=== PATIENT | female | born 2000 | race African-American/Black ===

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

== ENCOUNTER 2018-05-18 18:05 | Emergency (ER) | payer OTHER ==
[~2018-05-18] VITALS: Ht 170.2 cm; Wt 97.1 kg
[~2018-05-18 18:05] MED LIST: NITR100C62 PO
[2018-05-18 18:56] VITALS: BP 164/113
[2018-05-18] MEDS ORDERED: LIDO:MAALOX 1:1 20 ML SINGLE DOSE. PO ONE (19:00)
--- NOTE | 2018-05-18 19:02 | PHYS DOC ---
Past Medical History Past Medical History: Other Additional Past Medical Histor: ovarian cyst Past Surgical History: Other Additional Past Surgical Histo: ovarian cyst Additional Information: nonsmoker Alcohol Use: None Drug Use: None Adult General Chief Complaint Chief Complaint: ABDOMINAL PAIN HPI HPI Patient is a 17-year-old female is presenting with 4 days of bilateral epigastric pain. She reports this pain is sharp, it radiates up to her chest, it is worse after meals, and it goes away with rest. Patient has a past medical history of polycystic ovarian syndrome that she is supposed to take metformin for, she is noncompliant. Patient denies trauma. She reports that she has not had a period in 4 months, she says that there is no chance she is . She reports that she has not taken any medication for the pain. She reports that she has had episodes of GERD before and the pain feels very similar. She denies fever, chills, diarrhea, constipation, nausea, and vomiting. Review of Systems Review of Systems Constitutional: Denies fever or chills [] Eyes: Denies change in visual acuity, redness, or eye pain [] HENT: Denies nasal congestion or sore throat [] Respiratory: Denies cough or shortness of breath [] Cardiovascular: Reports chest pain, denies palpitations [] GI: Reports abdominal pain, denies nausea, vomiting, or diarrhea [] : Denies dysuria or hematuria [] Musculoskeletal: Denies back pain or joint pain [] Integument: Denies rash or skin lesions [] Neurologic: Denies headache, focal weakness or sensory changes [] Complete systems were reviewed and found to be within normal limits, except as documented in this note. Current Medications Current Medications Current Medications Medications (Trade) Dose Ordered Sig/Edwige Start Time Stop Time Status Last Admin Dose Admin Famotidine (Pepcid) 20 mg 1X ONCE 05/18/18 20:00 05/18/18 20:01 DC 05/18/18 20:01 20 MG Multi-Ingredient Mouthwash/Gargle (Gi Cocktail) 20 ml 1X ONCE 05/18/18 19:00 05/18/18 19:01 DC 05/18/18 19:00 20 ML Allergies Allergies Allergies Coded Allergies Type Severity Reaction Last Updated Verified No Known Drug Allergies 07/09/17 No Physical Exam Physical Exam Constitutional: Well developed, well nourished, no acute distress, non-toxic appearance. [] HENT: Normocephalic, atraumatic, nose normal. [] Eyes: Conjunctiva normal, no discharge. [] Neck: Normal range of motion, no tenderness. [] Cardiovascular: Heart rate regular rhythm, no murmur [] Lungs & Thorax: Bilateral breath sounds clear to auscultation [] Abdomen: Bowel sounds normal, soft, mild tenderness to palpation to epigastrium , non-peritoneal, negative Viveros's sign[] Skin: Warm, dry, no erythema, no rash. [] Extremities: No tenderness, no cyanosis, no clubbing, ROM intact, no edema. [] Neurologic: Alert and oriented X 3, no focal deficits noted. [] Psychologic: Affect normal, judgement normal, mood normal. [] Current Patient Data Vital Signs Vital Signs Date Time Temp Pulse Resp B/P (MAP) Pulse Ox O2 Delivery O2 Flow Rate FiO2 05/18/18 18:56 98.7 101 16 164/113 (130) 99 Room Air 98.7 Lab Values Laboratory Tests Test 05/18/18 18:36 05/18/18 18:57 Urine Collection Type Unknown Urine Color Yellow Urine Clarity Cloudy Urine pH 7.0 Urine Specific [place] 1.025 Urine Protein Negative mg/dL (NEG-TRACE) Urine Glucose (UA) Negative mg/dL (NEG) Urine Ketones (Stick) Negative mg/dL (NEG) Urine Blood Negative (NEG) Urine Nitrite Negative (NEG) Urine Bilirubin Negative (NEG) Urine Urobilinogen Dipstick 1.0 mg/dL (0.2 mg/dL) Urine Leukocyte Esterase Negative (NEG) Urine RBC 0 /HPF (0-2) Urine WBC 0 /HPF (0-4) Urine Squamous Epithelial Cells Few /LPF Urine Amorphous Sediment Present /HPF Urine Bacteria Moderate /HPF (0-FEW) Urine Mucus Mod /LPF POC Urine HCG, Qualitative Hcg negative (Negative) EKG EKG [] Radiology/Procedures Radiology/Procedures [] Course & Med Decision Making Course & Med Decision Making Patient is 17-year-old female is presenting with 4 days of bilateral upper abdominal pain, worse to epigastrium. Negative Viveros's sign. History of present illness and physical exam were concerning for GERD. Patient received GI cocktail, some improvement but the pain returned after a while. Patient offered further laboratory evaluation but opted to receive oral Pepcid and follow up with GI as outpatient. Patient stable for discharge with outpatient follow-up with PCP/GI. Discussed findings and plan with patient and family, who acknowledge understanding and agreement. Pradip Disclaimer Dragon Disclaimer This electronic medical record was generated, in whole or in part, using a voice recognition dictation system. Departure Departure Impression: Primary Impression: Epigastric abdominal pain Disposition: HOME, SELF-CARE Condition: STABLE Referrals: NO PCP (PCP) JIM SPAULDING MD Patient Instructions: Gastritis, Adult, [id number] Scripts Famotidine (PEPCID) 20 Mg Tablet 20 MG PO BID, #20 TAB Prov: PHOENIX MUÑOZ DO 05/18/18 PHOENIX MUÑOZ DO May 18, 2018 19:02
[2018-05-18 19:03] LABS: BILIRUBIN,URINE NEGATIVE (NEG); CLARITY,URINE CLOUDY; COLOR,URINE YELLOW; NITRITE,URINE NEGATIVE (NEG); PROTEIN,URINE NEGATIVE (NEG-TRACE)
[2018-05-18 19:09] LABS: AMORPHOUS SEDIMENT,UR PRESENT /HPF; BACTERIA,URINE MODERATE /HPF (0-FEW); RBC,URINE 0 /HPF (0-2); SQUAMOUS EPITHELIAL CELL,UR FEW /LPF; WBC,URINE 0 /HPF (0-4)
[2018-05-18] MEDS ORDERED: FAMO-63 PO (19:16)
[2018-05-18] MEDS ORDERED: FAMOTIDINE 20 MG TABLET. PO ONE (20:00)
== END 2018-05-18 20:09 | disposition home or self-care (01) ==
LOC: ER 18:05
DX: R10.13 Epigastric pain (principal); K21.9 Gastro-esophageal reflux disease without esophagitis
CPT/HCPCS: 81001; 81025; 87086; 99283

== ENCOUNTER 2020-10-03 00:57 | Emergency (ER) | payer OTHER ==
[~2020-10-03] VITALS: Ht 170.2 cm; Wt 113.6 kg
[~2020-10-03 00:57] MED LIST changes: +FAMO-63 PO
[2020-10-03 01:10] VITALS: BP 160/77
[2020-10-03] MEDS ORDERED: MAGN296S68 PO (01:32)
[2020-10-03] MEDS ORDERED: GLYC1SUP RC (01:32)
--- NOTE | 2020-10-03 01:36 | PHYS DOC ---
Past Medical History Past Medical History: Other Additional Past Medical Histor: ovarian cyst Past Surgical History: Other Additional Past Surgical Histo: ovarian cyst Smoking Status: Never Smoker Alcohol Use: None Drug Use: None General Adult EDM: Chief Complaint: CONSTIPATION HPI: HPI: Patient is a 19 year old male presents with a chief complaint of constipation and rectal pain. Patient states she has not had a bowel movement in approximately 1 week. Patient states she has had rectal discomfort for the same amount of time. Patient states she has the same exact rectal pain once a month on the first day of her period. Patient states she started her period 1 week ago but the rectal pain continued. Patient states she did have a bowel movement 1 week ago and there was more consistent stool with some abnormal white discoloration. Patient denied any rectal bleeding. Patient states she has a ttempted to have a BM and has strained. She has been taking [id number] ibuprofen which completely resolves her her rectal pain. On exam patient's abdomen is soft without rebound or guarding. Review of Systems: Review of Systems: Review of systems: Constitutional symptoms- No fever, no chills. Eyes- No Discharge, No Visual Loss Respiratory symptoms- No shortness of breath, No wheezing, No Dyspnea on Exertion Cardiovascular Systems; No chest pain, No Palpitations, No syncope Gastrointestinal symptoms: NO abdominal pain, no nausea, no vomiting or diarrhea. Positive rectal pain positive constipation Genitourinary symptoms: No dysuria. Musculoskeletal symptoms: No back pain No extremity pain. NEUROLOGICAL Symptoms: No headache, no generalized weakness; No focal Weakness Heart Score: C/O Chest Pain: N/A Risk Factors: Risk Factors: DM, Current or recent (<one month) smoker, HTN, HLP, family history of CAD, obesity. Risk Scores: Score 0 - 3: 2.5% MACE over next 6 weeks - Discharge Home Score 4 - 6: 20.3% MACE over next 6 weeks - Admit for Clinical Observation Score 7 - 10: 72.7% MACE over next 6 weeks - Early Invasive Strategies Allergies: Allergies: Allergies Coded Allergies Type Severity Reaction Last Updated Verified No Known Drug Allergies 07/09/17 No Physical Exam: PE: General: alert, no acute distress. Skin: warm, dry and intact. Head:: Normocephalic, atraumatic. Neck: Trachea midline. Eyes: EOMI, Normal conjunctiva, No drainage CARDIOVASCULAR: Regular rate and rhythm RESPIRATORY: No respiratory distress Back: Full range of motion. MUSCULOSKELETAL: Full range of motion of bilateral upper and lower extremities. GASTROINTESTINAL: Abdomen soft without rebound or guarding., Rectal exam deferred NEUROLOGICAL: Alert and noted to person, place and time. No neurological deficits observed Psychiatric: Cooperative. Normal judgment EKG: EKG: [] Radiology/Procedures: Radiology/Procedures: [] Course & Med Decision Making: Course & Med Decision Making Pertinent Labs and Imaging studies reviewed. (See chart for details) [] Dragon Disclaimer: Dragon Disclaimer: This electronic medical record was generated, in whole or in part, using a voice recognition dictation system. Departure Departure Impression: Primary Impression: Constipation Additional Impression: Rectal pain Disposition: HOME / SELF CARE / HOMELESS Condition: STABLE Referrals: NO PCP (PCP) Patient Instructions: Abdominal Pain, Constipation, Adult Scripts Glycerin (ADULT GLYCERIN) 1 Each Supp.rect 1 EACH RC DAILY, #10 SUPP.RECT Prov: RENATO LEGER DO 10/03/20 Magnesium Citrate (MAGNESIUM CITRATE) 296 Ml Solution 296 ML PO ONCE, #296 ML Prov: RENATO LEGER DO 10/03/20 RENATO LEGER DO Oct 03, 2020 01:36
== END 2020-10-03 02:11 | disposition home or self-care (01) ==
LOC: ER 00:57
DX: K59.00 Constipation, unspecified (principal); K62.89 Other specified diseases of anus and rectum
CPT/HCPCS: 99282

== ENCOUNTER 2020-12-14 00:49 | Emergency (ER) | payer OTHER ==
[~2020-12-14] VITALS: Ht 172.7 cm; Wt 113.6 kg
[~2020-12-14 00:49] MED LIST changes: +GLYC1SUP RC; +MAGN296S68 PO
[2020-12-14 01:50] LABS: CLARITY,URINE CLEAR; COLOR,URINE ORANGE
[2020-12-14 02:04] LABS: AMORPHOUS SEDIMENT,UR PRESENT /HPF; BACTERIA,URINE FEW /HPF (0-FEW); YEAST,URINE PRESENT /HPF
[2020-12-14] MEDS ORDERED: SULF1TAB24 PO (03:03)
[2020-12-14] MEDS ORDERED: FLUC150T PO (03:03)
--- NOTE | 2020-12-14 03:05 | PHYS DOC ---
Past Medical History Past Medical History: Other Additional Past Medical Histor: ovarian cyst, PCOS, HERNIA Past Surgical History: Other Additional Past Surgical Histo: ovarian cyst, ABDOMINAL RECONSTRUCTION SECONDARY TO HERNIA Smoking Status: Never Smoker Alcohol Use: Rarely Drug Use: None General Adult EDM: Chief Complaint: VAGINAL PROBLEM HPI: HPI: Patient is a 19 year old female who presents with labial pain and dysuria. Has felt like her labia has been slightly swollen for the past week. This started after intercourse when she had used a condom. She does not consistently use condoms. Has been sexually active with at least 2 partners in the past several months. Reports up to 20 partners in her lifetime. She denies any green or yellow vaginal discharge, but has had chunkier discharge than usual. Denies fever/chills. Dysuria started yesterday. She started taking Pyridium. She has been checked for STDs in the past and has been negative for GC and chlamydia. Review of Systems: Review of Systems: Constitutional: Denies fever or chills. [] Eyes: Denies change in visual acuity. [] HENT: Denies nasal congestion or sore throat. [] Respiratory: Denies cough or shortness of breath. [] Cardiovascular: Denies chest pain or edema. [] GI: Denies abdominal pain, nausea, vomiting, bloody stools or diarrhea. [] : Reports dysuria. Reports chunky vaginal discharge, reports vaginal discomfort. [] Musculoskeletal: Denies back pain or joint pain. [] Integument: Denies rash. [] Neurologic: Denies headache, focal weakness or sensory changes. [] Endocrine: Denies polyuria or polydipsia. [] Lymphatic: Denies swollen glands. [] Psychiatric: Denies depression or anxiety. [] Heart Score: C/O Chest Pain: No Risk Factors: Risk Factors: DM, Current or recent (<one month) smoker, HTN, HLP, family history of CAD, obesity. Risk Scores: Score 0 - 3: 2.5% MACE over next 6 weeks - Discharge Home Score 4 - 6: 20.3% MACE over next 6 weeks - Admit for Clinical Observation Score 7 - 10: 72.7% MACE over next 6 weeks - Early Invasive Strategies Allergies: Allergies: Allergies Coded Allergies Type Severity Reaction Last Updated Verified No Known Drug Allergies 07/09/17 No Physical Exam: PE: Constitutional: Well developed, well nourished, no acute distress, non-toxic appearance. [] HENT: Normocephalic, atraumatic, bilateral external ears normal, oropharynx moist, no oral exudates, nose normal. [] Eyes: PERRLA, EOMI, conjunctiva normal, no discharge. [] Neck: Normal range of motion, no tenderness, supple, no stridor. [] Cardiovascular:Heart rate regular rhythm, no murmur [] Lungs & Thorax: Bilateral breath sounds clear to auscultation [] Abdomen: Bowel sounds normal, soft, no tenderness, no masses, no pulsatile masses. [] : Pelvic exam with no evidence of labial edema or Bartholin abscess/cyst. On the left labia minora she did have a small ulceration. Speculum exam with chunky white vaginal secretions. Skin: Warm, dry, no erythema, no rash. [] Back: No tenderness, no CVA tenderness. [] Extremities: No tenderness, no cyanosis, no clubbing, ROM intact, no edema. [] Neurologic: Alert and oriented X 3, normal motor function, normal sensory function, no focal deficits noted. [] Psychologic: Affect normal, judgement normal, mood normal. [] Current Patient Data: Labs: Laboratory Tests Test 12/14/20 01:18 12/14/20 01:30 POC Urine HCG, Qualitative Hcg negative (Negative) Urine Collection Type Unknown Urine Color [place] Urine Clarity Clear Urine pH (<5.0-8.0) Urine Specific [place] (1.000-1.030) Urine Protein mg/dL (NEG-TRACE) Urine Glucose (UA) mg/dL (NEG) Urine Ketones (Stick) mg/dL (NEG) Urine Blood (NEG) Urine Nitrite (NEG) Urine Bilirubin (NEG) Urine Urobilinogen Dipstick mg/dL (0.2 mg/dL) Urine Leukocyte Esterase (NEG) Urine RBC 6-10 /HPF (0-2) Urine WBC 11-20 /HPF (0-4) Urine Squamous Epithelial Cells Mod /LPF Urine Amorphous Sediment Present /HPF Urine Bacteria Few /HPF (0-FEW) Urine Mucus Mod /LPF Urine Yeast Present /HPF Microbiology 12/14/20 Wet Prep - Final, Complete Vital Signs: Vital Signs Date Time Temp Pulse Resp B/P (MAP) Pulse Ox O2 Delivery O2 Flow Rate FiO2 12/14/20 01:25 98.5 91 20 137/73 (104) 99 Room Air 98.5 EKG: EKG: [] Radiology/Procedures: Radiology/Procedures: [] Course & Med Decision Making: Course & Med Decision Making Pertinent Labs and Imaging studies reviewed. (See chart for details) Patient a 19-year-old female who presents with vaginal discomfort, dysuria, and chunky white discharge. Wet prep shows yeast, which is consistent with her clinical scenario. Her UA is also concerning for UTI. She was negative for trichomonas on wet prep. GC/chlamydia was sent. A herpes PCR was collected from the left labial lesion. It was not entirely pathognomonic for herpes simplex. I will treat with Diflucan and Bactrim for yeast and UTI. Discussed with patient and will defer STI treatment. Patient will follow up with her [employer] PROJECT ENGINE[employer]. Benjaminon Disclaimer: Pradip Disclaimer: This electronic medical record was generated, in whole or in part, using a voice recognition dictation system. Departure Departure Impression: Primary Impression: Vaginal yeast infection Additional Impression: UTI (urinary tract infection) Disposition: HOME / SELF CARE / HOMELESS Condition: STABLE Referrals: NO PCP (PCP) Additional Instructions: You have evidence of a bacterial urinary tract infection and a vaginal yeast infection. For the yeast infection there is a one-time medication called Diflucan/fluconazole. Please pick this up and take as prescribed. For the UTI you will need to take an antibiotic for 7 days. We also sent off test for herpes, gonorrhea, chlamydia. These will take several days to result. If you have not heard back about them you can call to check by Saturday afternoon. They might take longer than that potentially. Please follow-up with your AUTOMOTIVE PROJECT ENGINEER to ensure that your symptoms improve. Scripts Sulfamethoxazole/Trimethoprim (BACTRIM DS TABLET) 1 Each Tablet 1 TAB PO BID for 7 Days, #14 TAB 0 Refills Prov: NORMAN CALDERON MD 12/14/20 Fluconazole (DIFLUCAN) 150 Mg Tablet 1 TAB PO ONCE for yeast, #1 TAB 1 Refill Prov: NORMAN CALDERON MD 12/14/20 NORMAN CALDERON MD Dec 14, 2020 03:05
[2020-12-14 03:30] VITALS: BP 147/81
[2020-12-15 23:12] LABS: GC PROBE Negative (Negative)
[2020-12-19 11:14] LABS: HERPES SIMPLEX TYPE 1 Negative (Negative); HERPES SIMPLEX TYPE 2 Negative (Negative)
== END 2020-12-14 03:38 | disposition home or self-care (01) ==
LOC: ER 00:49
DX: B37.3 Candidiasis of vulva and vagina (principal); N39.0 Urinary tract infection, site not specified
CPT/HCPCS: 81001; 81025; 87491; 87529; 87591; 99285; Q0111; 36415

== ENCOUNTER 2021-03-14 16:30 | Emergency (ER) | payer OTHER ==
[~2021-03-14] VITALS: Ht 170.2 cm; Wt 113.6 kg
[~2021-03-14 16:30] MED LIST changes: +FLUC150T PO; +SULF1TAB24 PO
[2021-03-14 17:00] VITALS: BP 141/74
--- NOTE | 2021-03-14 17:23 | PHYS DOC ---
Past Medical History Past Medical History: Other Additional Past Medical Histor: ovarian cyst, PCOS, HERNIA Past Surgical History: Other Additional Past Surgical Histo: ovarian cyst, ABDOMINAL RECONSTRUCTION SECONDARY TO HERNIA Smoking Status: Never Smoker Alcohol Use: Rarely Drug Use: None General Adult EDM: Chief Complaint: BLOOD IN URINE HPI: HPI: Patient is a 20-year-old female that presents today with UTI symptoms for 2 days. Patient states she has had burning with urination for the last 2 days she has also had some vaginal discharge which she describes chunky in nature and like previous yeast infections in the past. Patient states she was here in November 2020 and had similar symptoms and was diagnosed with a urinary tract infection and UTI. Review of Systems: Review of Systems: Constitutional: Denies fever or chills. [] Eyes: Denies change in visual acuity. [] HENT: Denies nasal congestion or sore throat. [] Respiratory: Denies cough or shortness of breath. [] Cardiovascular: Denies chest pain or edema. [] GI: Denies abdominal pain, nausea, vomiting, bloody stools or diarrhea. [] : dysuria, white vaginal discharge [] Musculoskeletal: Denies back pain or joint pain. [] Integument: Denies rash. [] Neurologic: Denies headache, focal weakness or sensory changes. [] Endocrine: Denies polyuria or polydipsia. [] Lymphatic: Denies swollen glands. [] Psychiatric: Denies depression or anxiety. [] Heart Score: C/O Chest Pain: N/A Risk Factors: Risk Factors: DM, Current or recent (<one month) smoker, HTN, HLP, family hist ory of CAD, obesity. Risk Scores: Score 0 - 3: 2.5% MACE over next 6 weeks - Discharge Home Score 4 - 6: 20.3% MACE over next 6 weeks - Admit for Clinical Observation Score 7 - 10: 72.7% MACE over next 6 weeks - Early Invasive Strategies Allergies: Allergies: Allergies Coded Allergies Type Severity Reaction Last Updated Verified No Known Drug Allergies 07/09/17 No Physical Exam: PE: Constitutional: Well developed, well nourished, no acute distress, non-toxic appearance. [] HENT: Normocephalic, atraumatic, bilateral external ears normal, oropharynx moist, no oral exudates, nose normal. [] Eyes: PERRLA, EOMI, conjunctiva normal, no discharge. [] Neck: Normal range of motion, no tenderness, supple, no stridor. [] Cardiovascular:Heart rate regular rhythm, no murmur [] Lungs & Thorax: Bilateral breath sounds clear to auscultation [] Abdomen: Bowel sounds normal, soft, no tenderness, no masses, no pulsatile masses, Skin: Warm, dry, no erythema, no rash. [] Back: No tenderness, no CVA tenderness. [] Extremities: No tenderness, no cyanosis, no clubbing, ROM intact, no edema. [] Neurologic: Alert and oriented X 3, normal motor function, normal sensory function, no focal deficits noted. [] Psychologic: Affect normal, judgement normal, mood normal. [] Current Patient Data: Labs: Laboratory Tests Test 03/14/21 16:56 03/14/21 17:58 Urine Collection Type Unknown Urine Color Yellow Urine Clarity Cloudy Urine pH 6.0 Urine Specific [place] 1.025 Urine Protein 30 mg/dL Urine Glucose (UA) Negative mg/dL Urine Ketones (Stick) Negative mg/dL Urine Blood Small Urine Nitrite Negative Urine Bilirubin Negative Urine Urobilinogen Dipstick 1.0 mg/dL Urine Leukocyte Esterase Large Urine RBC 6-10 /HPF Urine WBC >40 /HPF Urine Squamous Epithelial Cells Mod /LPF Urine Bacteria Moderate /HPF Urine Mucus Mod /LPF Bedside Urine HCG, Qualitative Hcg negative Vital Signs: Vital Signs Date Time Temp Pulse Resp B/P (MAP) Pulse Ox O2 Delivery O2 Flow Rate FiO2 03/14/21 17:00 98.2 96 18 141/74 (96) 100 Room Air 98.2 EKG: EKG: [] Radiology/Procedures: Radiology/Procedures: [] Course & Med Decision Making: Course & Med Decision Making Pertinent Labs and Imaging studies reviewed. (See chart for details) Due to patient's report of vaginal discharge will have patient self swab for wet prep and for GC chlamydia. Denies exposure to an STI. Wet prep shows the presence of yeast and with patient's report of vaginal discharge white in nature we will treat the patient for yeast infection along with a urinary tract infection that is noted in her UA. We will send urine for culture as well. Pradip Disclaimer: Pradip Disclaimer: This electronic medical record was generated, in whole or in part, using a voice recognition dictation system. Departure Departure Impression: Primary Impression: UTI (urinary tract infection) Qualified Codes: N30.00 - Acute cystitis without hematuria Additional Impression: Yeast infection involving the vagina and surrounding area Disposition: HOME / SELF CARE / HOMELESS Condition: STABLE Referrals: NO PCP (PCP) Patient Instructions: Candidal Vulvovaginitis, [id number], Urinary Tract Infection Additional Instructions: Take oral antibiotics for urinary tract infection until completed Take 1 dose of Diflucan for a yeast infection Increase by mouth fluids avoiding caffeine or alcohol which can irritate the bladder Wear cotton panties, clean your periarea with mild soap and water pat dry Return to the emergency department if you experience an increase in pain, or fever Follow-up with one of the clinics that or the one of the prime physicians that were provided on the brochure for follow-up in 5 to 7 days. Scripts Fluconazole (DIFLUCAN) 150 Mg Tablet 1 TAB PO ONCE for yeast infection, #1 TAB 1 Refill Prov: BROOKLYNN ARAGON [employer] ADJUSTER 03/14/21 Cephalexin (CEPHALEXIN) 500 Mg Tablet 1 CAP PO BID for UTI for 7 Days, #14 TAB Prov: BROOKLYNN ARAGON [employer] AD[employer] 03/14/21 BROOKLYNN ARAGON [employer] AD[employer]ER Mar 14, 2021 17:23
[2021-03-14 18:06] LABS: BILIRUBIN,URINE NEGATIVE (NEG); CLARITY,URINE CLOUDY; COLOR,URINE YELLOW; NITRITE,URINE NEGATIVE (NEG); PROTEIN,URINE 30 mg/dL (NEG-TRACE)
[2021-03-14 18:13] LABS: BACTERIA,URINE MODERATE /HPF (0-FEW); WBC,URINE >40 /HPF (0-4)
[2021-03-14] MEDS ORDERED: CEPH500T PO ×2 (18:46→18:58)
[2021-03-14] MEDS ORDERED: FLUC150T PO ×2 (18:46→18:58)
[2021-03-18 01:08] LABS: GC PROBE Negative (Negative)
== END 2021-03-14 19:01 | disposition home or self-care (01) ==
LOC: ER 16:30
DX: N30.00 Acute cystitis without hematuria (principal); B37.3 Candidiasis of vulva and vagina
CPT/HCPCS: 81001; 81025; 87086; 87491; 87591; 99283; Q0111